=== PATIENT | female | born 1975 | race Caucasian/White ===

== ENCOUNTER 2022-06-25 17:10 | Emergency (ER) | payer BC ==
--- OUTSIDE RECORDS SUMMARY | 2022-06-25 17:13 | XMS REPORT | Continuity of Care Document ---
:1975 Author Organization [facility] t Address [address] [facility] [place] [address] Care Team Providers Name Role Phone PCP, PATIENT DOES NOT HAVE A Primary Care Physician UnavailTristen Miller Attending Clinician Unavailable Klarissa Post RN Attending Clinician Unavailable Toro Kate Attending Clinician TORO PORRAS Attending Clinician Unavailable Rosalba Almaguer Admitting Clinician Unavailable TORO PORRAS Admitting Clinician Unavailable Payers Payer Name Policy Type Policy Number Effective Date Expiration Date S ource Problems This patient has no known problems. Allergies, Adverse Reactions, Alerts Allergy Allergy Status Severity Reaction(s) Onset Inactive Treating Comm ents Source Name Type Date Date Clinician Latex Propensi Active 2016-04 [facility] adverse 00:00: Hospita reaction 00 l s to drug RYAN DA Active U SWEELING 2004-04 [facility] 2-22 [place] [facility] No Known DA Active U 2004-04 [facility] Contrast - [place] Allergie 00:[facility]: d s [facility] No Known DA Active U 2004-04 [facility] Food 2- [place] Allergie 00:00: d s [facility] No Known DA Active U 2005-1 [facility] Other 2-22 [place] Allergie 00:00: d s [address] [place] [address] NO KNOWN Drug Active Univers ALLERGIE Class ity of S [facility] Social History Social Habit Start Date Stop Date Quantity Comments Source Exposure to Not sure University of SARS-CoV-2 (event) [facility] History of tobacco Smokes tobacco [facility] use daily Hospital Cigarettes smoked 2017-01-29 2017-01-29 [facility] current (pack per 00:00:00 00:00:00 Hospita l day) - Reported Alcohol intake 2017-01-29 2017-01-29 Current Taoist 00:00:00 00:00:00 non-drinker of Hospital alcohol (finding) Sex Ass[birth year] At [birth year] Taoist 00:00:00 00:00:00 Hospital Smoking Status Start Date Stop Date Source Unknown if ever smoked Universit [facility] of [facility] Smokes tobacco daily 2017-01-29 00:00:00 [facility] Medications Ordered Filled Start Stop Current Ordering Indication Dosage Frequency Signature Comments Components Source Medication Medication Date Date Medication? Clinician (SIG) Name Name butalbital- 2020-04- No 1{tbl} 1 tablet, Univers acetaminoph 04-30 Oral, ity of en-caff 18:30: 17:46 ONCE, 1 [place] (ESGIC) 00 :00 dose, On Medical 50-325-40 e Branch mg tablet 1 02/28/21 at tablet 1230, MARTHA NaCl 0.9% 2020-04- No 500mL at 999 Univ ers (NS) bolus 04-30 mL/hr, 500 it y of infusion 18:30: 18:45 mL, IV [place] 500 mL 00 :00 Infusion, Medical ONCE, 1 Branch dose, On 02/28/21 at 1230, STAT metoclopram 2020-04- No 5mg 5 mg, Slow Univers rishi HCl 04-30 IV Push, ity of (REGLAN) 18:30: 17:44 ONCE, 1 [place] injection 5 00 :00 dose, On Medi cailin mg e Branch 02/28/21 at 1230, MARTHA dexamethaso 2020-04- No 10mg 10 mg, IV Univers ne 04-30 Push, ity of (DECADRON 18:30: 17:43 ONCE, 1 [place] PHOSPHATE[place] 00 :00 dose, On Medic al injection Tue Branch 10 mg 02/28/21 at 1230, MARTHA methocarbam 2020-04 Yes 1000mg 1,000 mg, Univers oL 1-09 Oral, QID, ity of (ROBAXIN) 18:00: [place] tablet 00 on Tue Medical 1,000 mg 02/28/21 at [facility] h 1200, Until Discontinu ed, MARTHA Diclofenac 2020-04 Yes [id number] Apply to Univers Sodium 1-09 area(s) 2 ity of (VOLTAREN) 00:00: (two) [place] 1 % gel 00 times Medical daily. Branch methocarbam 2020-04 Yes [id number] 500mg Take 1 Univers oL 1-09 tablet by ity of (ROBAXIN) 00:00: mouth 4 [place] 500 mg 00 (four) Medical tablet times Branch daily as needed for Pain (scale 7-10). metoclopram 2020-04 Yes [id number] 10mg Take 1 Univers rishi HCl 10 1-09 tablet by ity of mg tablet 00:00: mouth [place] 00 every 6 Medical (six) Branch hours as needed for Nausea and Vomiting (N/V). butalbital- 2020-04 Yes [id number] 1{tbl} Take 1 Univers acetaminoph 1-09 tablet by ity of en-caff 00:00: mouth [place] 50-325-40 00 every 6 Medical mg tablet (six) Branch hours as needed for Pain (scale 7-10). Diclofenac 2020-04 Yes [id number] Apply to Univers Sodium 1-09 area(s) 2 ity of (VOLTAREN) 00:00: (two) [place] 1 % gel 00 times Medical daily. Branch methocarbam 2020-04 Yes [id number] 500mg Take 1 Univers oL 1-09 tablet by ity of (ROBAXIN) 00:00: mouth 4 [place] 500 mg 00 (four) Medical tablet times Branch daily as needed for Pain (scale 7-10). metoclopram 2020-04 Yes [id number] 10mg Take 1 Univers rishi HCl 10 1-09 tablet by ity of mg tablet 00:00: mouth [place] 00 every 6 Medical (six) Branch hours as needed for Nausea and Vomiting (N/V). butalbital- 2020-04 Yes [id number] 1{tbl} Take 1 Univers acetaminoph 1-09 tablet by ity en-caff 00:00: mouth [place] 50-325-40 00 every 6 Medical mg tablet (six) Branch hours as needed for Pain (scale 7-10). Vital Signs Vital Name Observation Time Observation Value Comments Source Heart rate 2021-02-28 18:45:00 83 /min [facility] Oxygen saturation in 2021-02-28 18:45:00 98 /min [facility] Arterial blood by [facility] Pulse oximetry Branch Systolic blood 2021-02-28 17:08:00 128 mm[Hg] [facility] Diastolic blood 2021-02-28 17:08:00 74 mm[Hg] [facility] Body temperature 2021-02-28 17:08:00 37.17 Maddi [facility] Respiratory rate 2021-02-28 17:08:00 18 /min [facility] Body weight 2021-02-28 17:08:00 89.359 kg [facility] Procedures Procedure Date / Time Performing Clinician Source Performed BASIC METABOLIC PANEL 2021-02-28 17:38:00 Toro Porras [facility] (NA, K, CL, CO2, Medical [place] GLUCOSE, BUN, CREATININE, CA) CBC WITH DIFF 2021-02-28 17:38:00 Toro Porras [place] [facility] PROTHROMBIN TIME / INR 2021-02-28 17:38:00 [facility] ACTIVATED PARTIAL 2021-02-28 17:38:00 Toro Porras [facility] THRMPLAS BROOK [facility] XR CERVICAL SPINE 2 VW 2021-02-28 17:32:23 Tor[facility] Porras [facility] CONSENT/REFUSAL FOR 2021-02-28 17:06:19 [facility] Name [facility] NOTICE OF PRIVACY 2021-02-28 17:06:06 Doctor Unassigned, No Univ [facility] PRACTICES Name [facility] Encounters Start End Encounter Admission Attending Care Care Encounter Source Date/Time Date/Time Type Type Clinicians Facility Department ID 2021-08-30 2021-08-30 Emergency EM Tristen Nguyen HCAPM JOSE LA00 [id number] [facility] 10:32:00 19:46:00 18 [facility] 2021-08-30 2021-08-30 Emergency EM Tristen Nguyen HCAPM HCAPM [id number] [facility] 10:32:00 10:32:00 [id number] [facility] 2021-03-13 2021-03-13 Letter SARAH Post [id number] Univers 00:00:00 00:00:00 (Out) Klarissa HOLLEY [id number] it [facility] [id number] Mathieu as [id number] [facility] 019 Branch 2021-02-28 2021-02-28 Emergency [facility] [id number] Univers 11:09:00 12:53:00 Toro HALL [id number] i [facility] [id number] [facility] [id number] [facility] 084 Branch 2021-02-28 2021-02-28 Emergency X [facility] ERT [id number] Univers 11:09:00 12:53:00 TORO valerio [facility] [place] 2021-01-22 2021-01-22 Outpatient PRIV PRIV [id number] [facility] 00:00:00 00:00:00 [id number] Medica l Results Test Description Test Time Test Comments Results Result Comments Source - XR CHEST 2 V 2021-08-30 11:34:00 [facility]: BILL [facility]UTCHINS : 1975 Sex: F Name: BILL HUTCHINS : 1975 Age/S: 46 / F [address] Unit #: [id number] Loc: [place] [address] Phys: Tristen Nguyen DO Acct: [id number] Dis Date: Status: REG ER PHONE #: [phone] Exam Date: 08/30/2021 1120 FAX #: Reason: cough EXAMS: CPT: [id number] XR CHEST 2 V 50895 Fluoro Time: DAP (Gy m2): Air Kerma (mGy): STUDY: - XR CHEST 2 V CLINICAL HISTORY: Cough COMPARISON: None available LOCATION: C3 FINDINGS: PA and lateral views of the chest are submitted for evaluation. The lungs are clear The cardiac silhouette, mediastinum and pulmonary vasculature are unremarkable. The regional osseous structures are intact IMPRESSION: No acute radiographic abnormality. at 1134 Reported and signed by: Susan Chase M.D. CC: Dina SNOWDEN; Tristen Nguyen DO PAGE 1 Signed Report Name: BILL HUTCHINS : 1975 Age/S: 46 / F [address] [address] Unit #: [id number] Loc: [place] [address] Phys: Tristen Nguyen DO Acct: [id number] Dis Date: Status: REG ER PHONE #: [phone] Exam Date: 08/30/2021 1120 FAX #: Reason: cough EXAMS: CPT: [id number] XR CHEST 2 V [id number] Fluoro Time: DAP (Gy m2): Air Kerma (mGy): (Continued) Technologist: Angelo Bee RT(R)(CT) Trnscb Date/Time: 08/30/2021 (1134) [id number] Orig Print D/T: S: 08/30/2021 (2689) PAGE 2 Signed Report BASIC METABOLIC PANEL (NA, K, CL, CO2, GLUCOSE, BUN, 2021-02 18:09:20 CREATININE, CA) Test Item Value Reference Range Interpretation Comme nts NA (test code = 8008752370) 140 mmol/L 135-145 K (test code = 6306938668) 3.5 mmol/L 3.5-5.0 CL (test code = 4368961919) 112 mmol/L 98-108 H CO2 TOTAL (test code = 6951755821) 20 mmol/L 23-31 L AGAP (test code = 2744062433) 2-16 BUN (test code = 3592637375) 10 mg/dL 7-23 GLUCOSE (test code = 4127313055) 92 mg/dL 70-110 CREATININE (test code = 0.67 mg/dL 0.50-1.04 1499235602) CALCIUM (test code = 6982022917) 9.2 mg/dL 8.6-10.6 eGFR (test code = 1064662461) mL/min/1.73m2 KATY (test code = KATY) Association of Glomerular Filtration Rate (GFR) and Staging of Kidney Disease* + +-------- + ------+| GFR (mL/min/1.73 m2) ?| With Kidney Damage ?| ?Without Kidney Damage+ +-- + +| ?>90 ?| ?Stage one ?| ? Normal ?+ +------- + -------+| ?60-89 ?| ?Stage two ?| ? Decreased GFR ? + +-------- + ------+| ?30-59 ?| ?Stage three ?| ? Stage three ? + +-------- + ------+| ?15-29 ?| ?Stage four ? | ? Stage four ?+ +------- + -------+| ?<15 (or dialysis) ? ?| ?Stage five ? | ? Stage five ?+ +------- + -------+ *Each stage assumes the associated GFR level has been in effect for at least three months. ?Stages 1 to 5, with or without kidney disease, indicate chronic kidney disease. Notes: Determination of stages one and two (with eGFR >59mL/min/1.73 m2) requires estimation of kidney damage for at least three months as defined by structural or functional abnormalities of the kidney, manifested by either:Pathological abnormalities or Markers of kidney damage (including abnormalities in the composition of the blood or urine or abnormalities in imaging tests). Lab Interpretation (test code = Abnormal 21846-5) [facility] [place] [facility] THRMPLAS [id number] 18:00:14 Test Item Value Reference Range Interpretation Comments APTT Patient (test See_Comment [Automat ed code = 3173-2) message] The system which generated this result transmitted reference range : 23 - 38 Seconds . The reference range was not used to interpr et this result as normal/abnormal . KATY (test code = KATY) The [facility] patient population mean normal value for aPTT is 30 seconds. Lab Interpretation Normal (test code = 73033-1) [facility] [place] [facility]PROT[facility] TIME / [id number] 17:58:16 Test Item Value Reference Range Interpretation Comments PROTIME PATIENT (test See_Comment [Auto mated message] code = 5964-2) The system wh ich generated this result transmitted ref erence range: 12.0 - 1 4.7 Seconds. The re ference range was not u sed to interpret this result as normal/abnor mal. INR (test code = 6301-6) Nor mal INR <1.1; Warfarin Therap eutic range 2.0 to 3. 0 or 2.5 to 3.5, dep ending upon the indica tions. Lab Interpretation (test Normal code = 74105-3) [facility] [place] [facility] WITH [id number] 17:49:52 Test Item Value Reference Range Interpretation Comments WBC (test code = See_Comment [Automated 6990-2) message] The sy stem which generated this result transmitted reference range : 4.30 - 11.10 10*3/?L. The reference range was not used to interpret this result as normal/abnormal . RBC (test code = See_Comment [Automated 529-8) message] The sy stem which generated this result transmitted reference range : 3.93 - 5.25 10*6/?L. The reference range was not used to interpret this result as normal/abnormal . HGB (test code = 13.8 g/dL 11.6-15.0 718-7) HCT (test code = 41.3 % 35.7-45.2 4544-3) MCV (test code = 93.0 fL 80.6-95.5 787-2) MCH (test code = 31.1 pg 25.9-32.8 785-6) MCHC (test code = 33.4 g/dL 31.6-35.1 786-4) RDW-SD (test code = 43.8 fL 39.0-49.9 66450-1) RDW-CV (test code = 12.7 % 12.0-15.5 788-0) PLT (test code = See_Comment [Automated 777-3) message] The sy stem which generated this result transmitted reference range : 166 - 358 10*3/ ?L. The reference r justo was not used to interpret this result as normal/abnormal . MPV (test code = 11.6 fL 9.5-12.9 13346-9) NRBC/100 WBC (test See_Comment [Automat ed code = 5495978776) message] The system which generated this result transmitted reference range : 0.0 - 10.0 /100 WBCs. The refer ence range was not u sed to interpret th is result as normal/abnormal . NRBC x10^3 (test code <0.01 See_Comment [Auto mated = 5864601405) message] The s ystem which generated this result transmitted reference range : 10*3/?L. The reference range was not used to interpret this result as normal/abnormal . GRAN MAT (NEUT) % 62.5 % (test code = 770-8) IMM GRAN % (test code 0.30 % = 7757660958) LYMPH % (test code = 27.0 % 736-9) MONO % (test code = 7.0 % 5905-5) EOS % (test code = 1.9 % 713-8) BASO % (test code = 1.3 % 706-2) GRAN MAT x10^3(ANC) 4.67 10*3/uL 1.88-7.09 (test code = 9260645856) IMM GRAN x10^3 (test <0.03 0.00-0.06 code = 7095080845) LYMPH x10^3 (test code 2.02 10*3/uL 1.32-3.29 = 731-0) MONO x10^3 (test code 0.52 10*3/uL 0.33-0.92 = 742-7) EOS x10^3 (test code = 0.14 10*3/uL 0.03-0.39 711-2) BASO x10^3 (test code 0.10 10*3/uL 0.01-0.07 H = 704-7) Lab Interpretation Abnormal (test code = 53647-1) [facility]"
[2022-06-25] MEDS ORDERED: KETOROLAC 30 MG/ML INJ ONE (18:30)
--- NOTE | 2022-06-25 19:34 | RAD REPORT ---
EXAM DESCRIPTION: Jenae Single View06/25/2022 6:11 pm CLINICAL HISTORY: Chest pain COMPARISON: none FINDINGS: The lungs appear clear of acute infiltrate. The heart is normal size IMPRESSION: No acute abnormalities displayed
--- NOTE | 2022-06-25 19:34 | RAD REPORT ---
EXAM DESCRIPTION: RAD - Ribs Left - 06/25/2022 6:52 pm CLINICAL HISTORY: Rib pain FINDINGS: No fracture is seen
--- NOTE | 2022-06-25 19:48 | ER ---
Nurse's Notes [facility] [place] Name: Alissa Landry Age: 47 yrs Sex: Female : 1975 Arrival Date: 06/25/2022 Time: 17:13 Bed DIS1 Private MD: Diagnosis: Cough;Posterior left rib pain Presentation: 06/25 18:20 Onset of symptoms was 2022. aa5 18:20 Acuity: GERARD 3 aa5 18:20 Chief complaint: Patient states: cough today and felt pop to left posterior rib cage. aa5 Coronavirus screen: cough unrelated to allergies. Ebola Screen: Patient denies travel to an Ebola-affected area in the 21 days before illness onset. Initial Sepsis Screen: Does the patient meet any 2 criteria? HR > 90 bpm. Does the patient have a suspected source of infection? No. Patient's initial sepsis screen is negative. Risk Assessment: Do you want to hurt yourself or someone else? Patient reports no desire to harm self or others. 18:20 Method Of Arrival: Ambulatory aa5 Triage Assessment: 19:42 General: Appears in no apparent distress. comfortable, Behavior is calm, cooperative. aa9 Musculoskeletal: Reports pain in Left torso Pain is 10 out of 10 on a pain scale. pain medicine did not relieve pain. 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 - Social history:: Smoking status: Patient reports the use of cigarette tobacco products. Screenin:42 [facility] ED Fall Risk Assessment (Adult) History of falling in the last 3 months, aa9 including since admission No falls in past 3 months (0 pts) Confusion or Disorientation No (0 pts) Intoxicated or Sedated No (0 pts) Impaired Gait No (0 pts) Mobility Assist Device Used No (0 pt) Altered Elimination No (0 pt) Score/Fall Risk Level 0 - 2 = Low Risk Oriented to surroundings, Maintained a safe environment. Abuse screen: Denies threats or abuse. Denies injuries from another. Nutritional screening: No deficits noted. Tuberculosis screening: No symptoms or risk factors identified. Assessment: 19:43 Neuro: Level of Consciousness is awake, alert, obeys commands, Oriented to person, aa9 place, time, situation. Respiratory: Airway is patent Respiratory effort is even, unlabored, Denies shortness of breath. 19:54 Reassessment: Patient appears in no apparent distress at this time. Patient and/or aa9 family updated on plan of care and expected duration. Pain level reassessed. pt understands discharge instructions, denies concerns. Vital Signs: 18:20 BP 133 / 82; Pulse 97; Resp 18 S; Temp 97.8(TE); Pulse Ox 100% on R/A; Weight 94.8 kg aa5 (R); Height 5 ft. 4 in. (162.56 cm) (R); 19:48 BP 131 / 79; Pulse 87; Resp 17; Temp 97.9(O); Pulse Ox 99% on R/A; aa9 18:20 Body Mass Index 35.87 (94.80 kg, 162.56 cm) aa5 ED Course: 17:13 Patient arrived in ED. mr 17:14 Kala Soni FNP-C [facility] kb 17:14 Ganesh Lewis DO is Attending Physician. kb 18:19 Arm band placed on. aa5 18:20 Triage completed. aa5 19:42 Patient has correct armband on for positive identification. aa9 19:53 No provider procedures requiring assistance completed. Patient did not have IV access aa9 during this emergency room visit. Administered Medications: 18:28 Drug: Ketorolac 30 mg Route: IM; Site: left gluteus; aa5 Medication: 19:43 VIS not applicable for this client. aa9 Outcome: 19:47 Discharge ordered by . kb 19:53 Discharged to home ambulatory. aa9 19:53 Condition: stable 19:53 Discharge instructions given to patient, Instructed on discharge instructions, follow up and referral plans. medication usage, Demonstrated understanding of instructions, follow-up care, medications, Prescriptions given X 1. 19:54 Patient left the ED. aa9 Signatures: Kala Soni FNP-C FNP-Corinna Wilkes Audri, RN RN aa5 Manda Sprague RN RN aa9 Corrections: (The following items were deleted from the chart) 18:20 18:20 Acuity: GERARD 4 aa5 aa5 18:21 18:20 Pulse 97bpm; Resp 18bpm; Spontaneous; Pulse Ox 100% RA; Temp 97.8F Temporal; 94.8 aa5 kg Reported; Height 5 ft. 4 in. Reported; BMI: 35.8; aa5
--- NOTE | 2022-06-25 19:48 | EDPHYS ---
Physician Documentation [facility] Name: Alissa Landry Age: 47 yrs Sex: Female : 1975 Arrival Date: 06/25/2022 Time: 17:13 Bed DIS1 Private MD: ED Physician Ganesh Lewis STORE ASSOCIATE: 06/25 18:19 LMP N/A - Depo-provera aa5 Historical: - Allergies: 18:21 No Known Allergies; aa5 - Home Meds: 18:21 losartan oral [Active]; amlodipine oral [Active]; aa5 18:24 phentemine weight loss [Active]; aa5 - PMHx: 18:21 Hypertensive disorder; aa5 - PSHx: 18:21 None; aa5 - Immunization history:: Adult Immunizations unknown. - Social history:: Smoking status: Patient reports the use of cigarette tobacco products. Vital Signs: 18:20 BP 133 / 82; Pulse 97; Resp 18 S; Temp 97.8(TE); Pulse Ox 100% on R/A; Weight 94.8 kg aa5 (R); Height 5 ft. 4 in. (162.56 cm) (R); 19:48 BP 131 / 79; Pulse 87; Resp 17; Temp 97.9(O); Pulse Ox 99% on R/A; aa9 18:20 Body Mass Index 35.87 (94.80 kg, 162.56 cm) aa5 MDM: 17:25 Patient medically screened. 06/25 17:25 Order name: Chest Single View XRAY 06/25 17:25 Order name: Ribs Left XRAY 06/25 19:34 Order name: RAD; Complete Time: 19:37 EDMS 06/25 19:35 Order name: RAD; Complete Time: 19:37 EDMS Administered Medications: 18:28 Drug: Ketorolac 30 mg Route: IM; Site: left gluteus; aa5 Disposition Summary: 06/25/22 19:47 Discharge Ordered Location: Home kb Condition: Stable kb Diagnosis - Cough kb - Posterior left rib pain kb Followup: kb - With: Emergency Department - When: As needed - Reason: Worsening of condition Followup: kb - With: Private Physician - When: 2 - 3 days - Reason: Recheck today's complaints, Continuance of care, Re-evaluation by your physician Discharge Instructions: - Discharge Summary Sheet kb - Cough, Adult, [id number]-[id number] kb - Pleurisy, Ndfn-qo-Cxxp kb Forms: - Work release form kb - Medication Reconciliation Form kb - Thank You Letter kb - Antibiotic Education kb - Prescription Opioid Use kb Prescriptions: - Prednisone 20 mg Oral Tablet - take 1 tablet by ORAL route once daily for 5 days; 5 tablet; Refills: 0, kb Product Selection Permitted Signatures: Dispatcher [employer] Kala Godinez, BEHAVIORAL HEALTH COUNSELOR-C DAREN-Petty Durand, RN RN aa5 Corrections: (The following items were deleted from the chart) 19:49 19:47 Costochondritis kb kb
[2022-06-25 20:00] VITALS: BP 131/79; TEMP 97.9; O2SAT 99
== END 2022-06-25 19:54 | disposition home or self-care (01) ==
LOC: ER 17:10
DX: R05.9 Cough, unspecified (principal); R07.81 Pleurodynia
CPT/HCPCS: 71045; 96372; 99283